=== PATIENT | male | born 1945 | race Two or more races ===

== ENCOUNTER 2023-11-22 13:12 | Outpatient (AMB) | payer MEDICARE, SELFPAY ==
--- OUTSIDE RECORDS SUMMARY | 2023-11-22 13:14 | XMS_ITS | Continuity of Care Document ---
Author Organization [facility] Address [address] [place] [address]- Care Team Providers Care Bookbinder Apprentice Name Role Phone Jayson Quispe MD Primary Care Physician [id number] Date(s): 03/26/21 - 04/25/21 [facility] [address] [place] [id number] Allergies, Adverse Reactions, Alerts No Known Allergies Immunizations Given and Recorded Vaccine Date Status Refusal Reason tetanus-diphtheria toxoids (Td) 09/24/98 Given Medications dexamethasone 4 mg oral tablet 10 tablet = 40 mg, By Mouth, Daily, for 4 days, with food; take in the morning, # 40 tablet, 1 Refills, Acute 05/04/21 15:30:00 EST, 04/26/21 15:30:00 EST, [id number], 10 tabs is 40 mg daily x 4 days, 172, cm, 02/13/21 8:27:00 EST, He... Start Date: 04/26/21 Stop Date: 05/04/21 Status: Ordered hydrochlorothiazide-lisinopril 12.5 mg-10 mg oral tablet 1 tablet, By Mouth, Daily, 0 Refills, Maintenance, 01/11/17 3:28:59 Start Date: 01/11/17 Status: Ordered metFORMIN 850 mg oral tablet 1 tablet = 850 mg, By Mouth, Daily in AM, 0 Refills, Maintenance, 02/20/17 12:15:26 EST, Tablet Start Date: 02/20/17 Status: Ordered pantoprazole 40 mg oral delayed release tablet = 40 mg, By Mouth, Daily, # 60 tablet, 0 Refills, Maintenance, 02/13/21 13:12:00 EST, EC Tablet, 172, cm, 02/13/21 8:27:00 EST, Height, 96.5, kg, 02/12/21 9:03:00 EST, Dry Weight Start Date: 02/13/21 Status: Ordered rosuvastatin 20 mg oral tablet 1 tablet = 20 mg, By Mouth, Daily, Take at noon, # 30 tablet, 0 Refills, Maintenance, 02/12/19 1:49:58 EST, Tablet Start Date: 02/12/19 Status: Ordered Problem List Condition Effective Dates Status Health Status Inform ant Diego Mcpherson(Confirmed) Active Obese class I(Confirmed) Active Obstructive sleep apnea syndrome(Confirmed) Active Rhinitis(Confirmed) Active Smoker(Confirmed) Active Snoring(Confirmed) Active
--- OUTSIDE RECORDS SUMMARY | 2023-11-22 13:14 | XMS_ITS | Continuity of Care Document ---
Author Organization [facility] Address [address] [place] [address]- Care Team Providers Care Supervisor Color Making Name Role Phone Jayson Quispe MD Primary Care Physician Encounter [facility] Date(s): 11/30/20 - 12/30/20 [facility] Care [address] [place] [id number] Attending Physician: Christal Ruby Admitting Physician: AdmChristal osman Referring Physician: AdmtrChristal Allergies, Adverse Reactions, Alerts Substance Reaction Severity Status NKA Active Immunizations Given and Recorded Vaccine Date Status Refusal Reason tetanus-diphtheria toxoids (Td) 09/24/98 Given Medications acetaminophen 325 mg oral tablet 650 mg, By Mouth, Every 6 hours, Refills 0, Maintenance, 02/20/17 12:15:23 Start Date: 02/20/17 Status: Ordered hydrochlorothiazide-lisinopril 12.5 mg-10 mg oral tablet 1 tablet, By Mouth, Daily, 0 Refills, Maintenance, 01/11/17 3:28:59 Start Date: 01/11/17 Status: Ordered metFORMIN 850 mg oral tablet 1 tablet = 850 mg, By Mouth, 2 times a day, 0 Refills, Maintenance, 02/20/17 12:15:26 EST, Tablet Start Date: 02/20/17 Status: Ordered rosuvastatin 20 mg oral tablet 1 tablet = 20 mg, By Mouth, Daily, Take at noon, # 30 tablet, 0 Refills, Maintenance, 02/12/19 1:49:58 EST, Tablet Start Date: 02/12/19 Status: Ordered Problem List Condition Effective Dates Status Health Status Inform ant Hematuria-Dr. Mcpherson(Confirmed) Active Obstructive sleep apnea syndrome(Confirmed) Active Rhinitis(Confirmed) Active Smoker(Confirmed) Active Snoring(Confirmed) Active
--- OUTSIDE RECORDS SUMMARY | 2023-11-22 13:14 | XMS_ITS | Continuity of Care Document ---
Author Organization [facility] ter Address [address] [place] [id number]- Care Team Providers Care Wall Washer Name Role Phone Jayson Quispe MD Primary Care Physician Encounter [facility] Date(s): 01/24/21 - 01/25/[address] [address]- Discharge Disposition: A-D/C Home Attending Physician: Delonte Wallace MD Admitting Physician: Delonte Wallace MD Referring Physician: Not on Staff, Referring MD Allergies, Adverse Reactions, Alerts Substance Reaction Severity [...] Active Rhinitis(Confirmed) Active Smoker(Confirmed) Active Snoring(Confirmed) Active Vital Signs Most recent to oldest [Reference Range]: 1 2 3 Oxygen Saturation [94-100 %] 99 % (01/25/21 12:33 AM) 98 % (01/24/21 7:51 PM) 96 % (01/24/21 4:58 PM) Pulse Rate [55-90 bpm] 110 bpm *H* (01/25/21 12:33 AM) 110 bpm *H* (01/24/21 7:51 PM) 110 bpm *H* (01/24/21 4:58 PM) Blood Pressure [90-138/55-84 mm Hg] 114/72mm Hg (01/25/21 12:33 AM) 112/50mm Hg (01/24/21 7:51 PM) 137/77mm Hg (01/24/21 4:58 PM) Respiratory Rate [16-30 br/min] 15 br/min *L* (01/25/21 12:33 AM) 18 br/min (01/24/21 7:51 PM) 18 br/min (01/24/21 4:58 PM) Temperature [96.8-100.4 DegF] 98.1 DegF (01/25/21 12:33 AM) 98.9 DegF (01/24/21 7:51 PM) 98.3 DegF (01/24/21 4:58 PM) Mode of Delivery (Oxygen) Room air (01/25/21 12:33 AM) Room air (01/24/21 7:51 PM) Room air (01/24/21 4:58 PM) Blood pressure sites Arm, right (01/25/21 12:33 AM) Arm, right (01/24/21 7:51 PM) Arm, right (01/24/21 4:58 PM) Temperature Route Oral (01/25/21 12:33 AM) Oral (01/24/21 7:51 PM) Oral (01/24/21 4:58 PM)
--- OUTSIDE RECORDS SUMMARY | 2023-11-22 13:14 | XMS_ITS | Continuity of Care Document ---
Author Organization [facility] ter Address [address] [place] [id number]- Care Team Providers Care Dimmer Board Operator Name Role Phone Brittaney BLACKWELL, Jayson Perez Primary Care Physician [phone] [id number] Date(s): 02/03/21 - 03/10/[address] [address]- Attending Physician: Maxx High MD Admitting Physician: Maxx High MD Allergies, Adverse Reactions, Alerts Substance Reaction Severity Status NKA Active Immunizations Given and Recorded Vaccine Date Status Refusal Reason tetanus-diphtheria toxoids (Td) 09/24/98 Given Medications hydrochlorothiazide-lisinopril 12.5 mg-10 mg oral tablet 1 [...] Effective Dates Status Health Status Inform ant Shelley-Dr. Mcpherson(Confirmed) Active Obese class I(Confirmed) Active Obstructive sleep apnea syndrome(Confirmed) Active Rhinitis(Confirmed) Active Smoker(Confirmed) Active Snoring(Confirmed) Active
--- OUTSIDE RECORDS SUMMARY | 2023-11-22 13:14 | XMS_ITS | Continuity of Care Document ---
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 Role Phone Jayson Quispe MD Primary Care Physician [phone] [id number] Date(s): 03/08/22 - 03/08/[address] [address]- Encounter Diagnosis COVID-19(Final) - 03/08/22 Fall(Final) - 03/08/22 Weakness(Final) - 03/08/22 Discharge Disposition: A-D/C Home Attending Physician: Iain Sal MD Admitting Physician: Iain Sal MD Referring Physician: Not on Staff, Referring MD Allergies, Adverse Reactions, Alerts No Known Allergies [...] Date: 02/12/19 Status: Ordered Problem List Condition Confirmation Course Effective Dates Status Health [facility] Informant COVID-19 1 Confirmed 03/08/22 Active Hematuria-Dr. Mcpherson Confirmed Active Obstructive sleep apnea syndrome Confirmed Active Rhinitis Confirmed Active Smoker Confirmed Active Snoring Confirmed Active 1Problem added by Discern Expert Results Radiology Reports * Exam Date Time Procedure Performing Provider Status 03/08/22 12:21 PM Chest Portable Idalmis Dominguez h (Verified) Notes: (Chest Portable) Reason For Exam: Other: RESULT: Chest Portable Chest Portable Hx of Present Illness: Pt coming from home, reports he became dizzy and fell from standing. Pt was lowered to the ground by . Denies LOC, head strike. is COVID+ COMPARISON: None. FINDINGS: LINES AND TUBES: None. LUNGS AND PLEURA: Low lung volumes with mild basilar atelectasis. Lungs are otherwise clear with no consolidation. No pleural effusion. No pneumothorax. HEART, MEDIASTINUM AND EMIGDIO: Heart is normal in size. Aorta is tortuous and partially calcified. BONES AND SOFT TISSUES: No acute abnormality. IMPRESSION: Low lung volumes with bibasilar atelectasis. I have personally reviewed the images and I agree with this report. WSN: [id number] Ordering Physician: Eb Martinez Dictated By: Olegario Johnston DO Dictated Date/Time: 03/08/22 1:00 pm Reviewed By: Delonte Hua MD Signed By: Delonte Hua MD Signed Date/Time: 03/08/22 1:05 pm Transcribed By: ESTELLA Transcribed Date/Time: 03/08/22 12:59 pm * Exam Date Time Procedure Performing Provider Status 03/08/22 10:[address] Cervical Spine W/O Contrast Jazlyn Sanchez; Nubia (Verified) Notes: (CT Cervical Spine W/O Contrast) Reason For Exam: Neck trauma, dangerous injury mechanism;Other: RESULT: CT Cervical Spine W/O Contrast CT Head/Brain W/O Contrast, CT Cervical Spine W/O Contrast INDICATION: Hx of Present Illness: Pt coming from home, reports he became dizzy and fell from standing. Pt was lowered to the ground by . Denies LOC, head strike. is COVID+; Reason: Other:; Head trauma, minor; Clinical Question(s): Other: TECHNIQUE: Noncontrast head CT using axial technique was reconstructed in axial and coronal planes.Noncontrast spiral CT through the cervical spine was formatted in 3 planes. Automatic tube modulation was used for the cervical spine and iterative dose reconstruction was used for both the head and cervical spine to optimize scan parameters and image quality. CTDIvol Body: 14.20 mGy, DLP Body: 407 mGy*cm. CTDIvol Head: 40.00 mGy, DLP Head: 671 mGy*cm. COMPARISON: None. FINDINGS: Retail Store Associate View Findings, Lines and Tubes: None. BRAIN AND EXTRA-AXIAL SPACES: No parenchymal hemorrhage, midline shift, or mass effect. Romero-white matter differentiation is wellpreserved. No acute infarct. Mild prominence of the ventricles and sulci consistent with parenchymal volume loss. Mild low-density white matter changes. No subarachnoid hemorrhage. No subdural or epidural collection. CALVARIUM, SKULL BASE, AND SOFT TISSUES: No fractures or suspicious bony lesions. The paranasal sinuses and mastoid air cells are clear. Visualized orbits and globes are intact. The extracranial soft tissues are unremarkable. Cerumen is present in both external auditory canals. CERVICAL SPINE: No fracture. No acute osseous abnormalities. There are poorly defined lytic lesions throughout the cervical spine. The largest measures 7 mm in C5 vertebral body (image 133, series 301). Normal alignment. No locked or perched facet. Moderate multilevel degenerative disc space narrowingand end plate irregularity. OTHER BONES: No acute abnormality. CERVICAL SOFT TISSUES AND LUNG APICES: Normal soft tissues. Calcifications in carotid bulbs. Mild centrilobular emphysema in the visualized lung apices. IMPRESSION: 1. No acute abnormality of the head or cervical spine. 2. Poorly defined subcentimeter lytic bone lesions in the cervical spine are nonspecific but malignancy cannot be excluded. Please consider further evaluation with nonemergent MRI with and without contrast. WSN: [id number] Ordering Physician: Eb Martinez Dictated By: Jossie Friedman MD Dictated Date/Time: 03/08/22 11:24 a Reviewed By: Jossie Friedman MD Signed By: Ersahin MD, Devrim Signed Date/Time: 03/08/22 11:24 am Transcribed By: ESTELLA Transcribed Date/Time: 03/08/22 11:06 am * Exam Date Time Procedure Performing Provider Status 03/08/22 10:[address] Head/Brain W/O Contrast Laura Gabbie; Auth (Verified) Notes: (CT Head/Brain W/O Contrast) Reason For Exam: Head trauma, minor;Other: RESULT: CT Head/Brain W/O Contrast CT Head/Brain W/O Contrast, CT Cervical Spine W/O Contrast INDICATION: Hx of Present Illness: Pt coming from home, reports he became dizzy and fell from standing. Pt was lowered to the ground by . Denies LOC, head strike. is COVID+; Reason: Other:; Head trauma, minor; Clinical Question(s): Other: TECHNIQUE: Noncontrast head CT using axial technique was reconstructed in axial and coronal planes.Noncontrast spiral CT through the cervical spine was formatted in 3 planes. Automatic tube modulation was used for the cervical spine and iterative dose reconstruction was used for both the head and cervical spine to optimize scan parameters and image quality. CTDIvol Body: 14.20 mGy, DLP Body: 407 mGy*cm. CTDIvol Head: 40.00 mGy, DLP Head: 671 mGy*cm. COMPARISON: None. FINDINGS: Retail Store Associate View Findings, Lines and Tubes: None. BRAIN AND EXTRA-AXIAL SPACES: No parenchymal hemorrhage, midline shift, or mass effect. Romero-white matter differentiation is wellpreserved. No acute infarct. Mild prominence of the ventricles and sulci consistent with parenchymal volume loss. Mild low-density white matter changes. No subarachnoid hemorrhage. No subdural or epidural collection. CALVARIUM, SKULL BASE, AND SOFT TISSUES: No fractures or suspicious bony lesions. The paranasal sinuses and mastoid air cells are clear. Visualized orbits and globes are intact. The extracranial soft tissues are unremarkable. Cerumen is present in both external auditory canals. CERVICAL SPINE: No fracture. No acute osseous abnormalities. There are poorly defined lytic lesions throughout the cervical spine. The largest measures 7 mm in C5 vertebral body (image 133, series 301). Normal alignment. No locked or perched facet. Moderate multilevel degenerative disc space narrowingand end plate irregularity. OTHER BONES: No acute abnormality. CERVICAL SOFT TISSUES AND LUNG APICES: Normal soft tissues. Calcifications in carotid bulbs. Mild centrilobular emphysema in the visualized lung apices. IMPRESSION: 1. No acute abnormality of the head or cervical spine. 2. Poorly defined subcentimeter lytic bone lesions in the cervical spine are nonspecific but malignancy cannot be excluded. Please consider further evaluation with nonemergent MRI with and without contrast. WSN: [id number] Ordering Physician: Eb Martinez Dictated By: Jossie Friedman MD Dictated Date/Time: 03/08/22 11:24 a Reviewed By: Jossie Friedman MD Signed By: Jossie Friedman MD Signed Date/Time: 03/08/22 11:24 am Transcribed By: ESTELLA Transcribed Date/Time: 03/08/22 11:06 am Vital Signs Most recent to oldest [Reference Range]: 1 2 3 Oxygen Saturation [94-100 %] 97 % (03/08/22 6:43 PM) 96 % (03/08/22 5:15 PM) 97 % (03/08/22 3:47 PM) Pulse Rate [55-90 bpm] 94 bpm *H* (03/08/22 6:43 PM) 99 bpm *H* (03/08/22 5:15 PM) 89 bpm (03/08/22 3:47 PM) Blood Pressure [90-138/55-84 mm Hg] 134/73mm Hg (03/08/22 6:43 PM) 132/97mm Hg (03/08/22 5:15 PM) 120/68mm Hg (03/08/22 3:52 PM) Respiratory Rate [16-30 br/min] 15 br/min *L* (03/08/22 6:43 PM) 22 br/min (03/08/22 5:15 PM) 20 br/min (03/08/22 3:47 PM) Temperature [96.8-100.4 DegF] 98.9 DegF (03/08/22 6:43 PM) 99.2 DegF (03/08/22 3:47 PM) 99.0 DegF (03/08/22 12:43 PM) Mode of Delivery (Oxygen) Room air (03/08/22 6:43 PM) Room air (03/08/22 5:15 PM) Room air (12/27/22 3:47 PM) Blood pressure sites Arm, left (03/08/22 6:43 PM) Arm, left (03/08/22 5:15 PM) Arm, left (03/08/22 3:52 PM) Temperature Route Oral (03/08/22 6:43 PM) Oral (03/08/22 3:47 PM) Oral (03/08/22 12:43 PM) EKG study * Event Display: EKG Authored Date: [id number] Note * Eb Martinez MD: PERFORM Event Display: Patient Education Leaflets Authored Date: [id number] Viral Syndrome (Adult) ?? [id number] Viral Syndrome (Adult) A viral illness may cause many symptoms such as fever. Other symptoms depend on the part of the body that the virus affects. If it settles in your nose, throat, and lungs, it may cause cough, sore throat, congestion, runny nose, headache, earache and other ear symptoms, or shortness of breath. If it settles in your stomach and intestinal tract, it may cause nausea, vomiting, cramping, and diarrhea. Sometimes it causes generalized symptoms like aching all over, feeling tired, loss of energy, or loss of appetite. A viral illness often lasts anywhere from a few days to a few weeks. But sometimes it lasts longer.In some cases, a more serious infection can look like a viral syndrome in the first few days of theillness. You may need another exam and additional tests to know the difference. Watch for the warning signs listed below for when to get medical advice. Home care Follow these guidelines for taking care of yourself at home: ??? If symptoms are severe, rest at home for the first 2 to 3 days. ??? Stay away from cigarette smoke - both your smoke and the smoke from others. ??? You may use idbd-zcp-fzrqziu??acetaminophen or ibuprofen for fever, muscle aching, and headache, unless another medicine was prescribed for this. Antibiotics aren't used to treat viral infections. If you have chronic liver or kidney disease or ever had a stomach ulcer or gastrointestinal bleeding, talk with your healthcare provider before using these medicines. No one who is younger than 18 and ill with a fever should take aspirin. It may cause severe disease or . ??? Your appetite may be poor, so a light diet is fine. Prevent dehydration by drinking 8 to 12, 8-ounce glassesof fluids each day. This may include water; orange juice; lemonade; apple, grape, and cranberry juice; clear fruit drinks; electrolyte replacement and sports drinks; and decaffeinated teas and coffee. If you've been diagnosed with a kidney disease, ask your healthcare provider how much and what types of fluids you should drink to prevent dehydration. If you have kidney disease, drinking too much fluid can cause it build up in your body and be dangerous to your health. ??? Pvya-jdi-pibrxmt remedies won't shorten the length of the illness. But they may be helpful for symptoms such as cough, sore throat, nasal and sinus congestion, or diarrhea. Don't use decongestants if you have high blood pressure. ?? Follow-up care Follow up with your healthcare provider if you don't get better over the next week. ?? Call 911 Call 911 if any of these occur: ??? Convulsion ??? Feeling weak, dizzy, or like you are going to faint ??? Chest pain, or more than mild shortness of breath ?? When to get medical advice Call your healthcare provider right away if any of these occur: ??? Cough with lots of colored sputum (mucus) or blood in your sputum ??? Chest pain, shortness of breath, wheezing, or trouble breathing ??? Severe headache; face, neck, or ear pain ??? Severe, constant pain in the lower right side ofyour belly (abdominal) ??? Continued vomiting (can???t keep liquids down) ??? Frequent diarrhea (more than 5 times a day), or blood (red or black color) or mucus in diarrhea ??? Feeling weak, dizzy, or like you are going to faint ??? Extreme thirst ??? Fever of 100.4??F (38??C) or higher, or as directed by your provider ?? Last Reviewed Date: 2021 ?? [id number] [employer]. All rights reserved. This information is not intended as a substitute for professional medical care. Always follow your healthcare professional's instructions. ?? CT Cervical spine WO contrast * [facility] , CIS S: TRANSCRIBE Idalia BLACKWELL, Devrim: VERIFY Event Display: Result: Authored Date: CT Head/Brain W/O Contrast, CT Cervical Spine W/O Contrast INDICATION: Hx of Present Illness: Pt coming from home, reports he became dizzy and fell from standing. Pt was lowered to the ground by . Denies LOC, head strike. is COVID+; Reason: Other:; Head trauma, minor; Clinical Question(s): Other: TECHNIQUE: Noncontrast head CT using axial technique was reconstructed in axial and coronal planes.Noncontrast spiral CT through the cervical spine was formatted in 3 planes. Automatic tube modulation was used for the cervical spine and iterative dose reconstruction was used for both the head and cervical spine to optimize scan parameters and image quality. CTDIvol Body: 14.20 mGy, DLP Body: 407 mGy*cm. CTDIvol Head: 40.00 mGy, DLP Head: 671 mGy*cm. COMPARISON: None. FINDINGS: Retail Store Associate View Findings, Lines and Tubes: None. BRAIN AND EXTRA-AXIAL SPACES: No parenchymal hemorrhage, midline shift, or mass effect. Romero-white matter differentiation is wellpreserved. No acute infarct. Mild prominence of the ventricles and sulci consistent with parenchymal volume loss. Mild low-density white matter changes. No subarachnoid hemorrhage. No subdural or epidural collection. CALVARIUM, SKULL BASE, AND SOFT TISSUES: No fractures or suspicious bony lesions. The paranasal sinuses and mastoid air cells are clear. Visualized orbits and globes are intact. The extracranial soft tissues are unremarkable. Cerumen is present in both external auditory canals. CERVICAL SPINE: No fracture. No acute osseous abnormalities. There are poorly defined lytic lesions throughout the cervical spine. The largest measures 7 mm in C5 vertebral body (image 133, series 301). Normal alignment. No locked or perched facet. Moderate multilevel degenerative disc space narrowingand end plate irregularity. OTHER BONES: No acute abnormality. CERVICAL SOFT TISSUES AND LUNG APICES: Normal soft tissues. Calcifications in carotid bulbs. Mild centrilobular emphysema in the visualized lung apices. IMPRESSION: 1. No acute abnormality of the head or cervical spine. 2. Poorly defined subcentimeter lytic bone lesions in the cervical spine are nonspecific but malignancy cannot be excluded. Please consider further evaluation with nonemergent MRI with and without contrast. WSN: [id number] Ordering Physician: Eb Martinez Dictated By: Jossie Friedman MD Dictated Date/Time: 03/08/22 11:24 a Reviewed By: Jossie Friedman MD Signed By: Jossie Friedman MD Signed Date/Time: 03/08/22 11:24 am Transcribed By: ESTELLA Transcribed Date/Time: 03/08/22 11:[address] Head WO contrast * [facility] , CIS S: TRANSCRIBE Jossie Friedman MD: VERIFY Event Display: Result: Authored Date: [id number] CT Head/Brain W/O Contrast, CT Cervical Spine W/O Contrast INDICATION: Hx of Present Illness: Pt coming from home, reports he became dizzy and fell from standing. Pt was lowered to the ground by . Denies LOC, head strike. is COVID+; Reason: Other:; Head trauma, minor; Clinical Question(s): Other: TECHNIQUE: Noncontrast head CT using axial technique was reconstructed in axial and coronal planes.Noncontrast spiral CT through the cervical spine was formatted in 3 planes. Automatic tube modulation was used for the cervical spine and iterative dose reconstruction was used for both the head and cervical spine to optimize scan parameters and image quality. CTDIvol Body: 14.20 mGy, DLP Body: 407 mGy*cm. CTDIvol Head: 40.00 mGy, DLP Head: 671 mGy*cm. COMPARISON: None. FINDINGS: Retail Store Associate View Findings, Lines and Tubes: None. BRAIN AND EXTRA-AXIAL SPACES: No parenchymal hemorrhage, midline shift, or mass effect. Romero-white matter differentiation is wellpreserved. No acute infarct. Mild prominence of the ventricles and sulci consistent with parenchymal volume loss. Mild low-density white matter changes. No subarachnoid hemorrhage. No subdural or epidural collection. CALVARIUM, SKULL BASE, AND SOFT TISSUES: No fractures or suspicious bony lesions. The paranasal sinuses and mastoid air cells are clear. Visualized orbits and globes are intact. The extracranial soft tissues are unremarkable. Cerumen is present in both external auditory canals. CERVICAL SPINE: No fracture. No acute osseous abnormalities. There are poorly defined lytic lesions throughout the cervical spine. The largest measures 7 mm in C5 vertebral body (image 133, series 301). Normal alignment. No locked or perched facet. Moderate multilevel degenerative disc space narrowingand end plate irregularity. OTHER BONES: No acute abnormality. CERVICAL SOFT TISSUES AND LUNG APICES: Normal soft tissues. Calcifications in carotid bulbs. Mild centrilobular emphysema in the visualized lung apices. IMPRESSION: 1. No acute abnormality of the head or cervical spine. 2. Poorly defined subcentimeter lytic bone lesions in the cervical spine are nonspecific but malignancy cannot be excluded. Please consider further evaluation with nonemergent MRI with and without contrast. WSN: [id number] Ordering Physician: Eb Martinez Dictated By: Jossie Friedman MD Dictated Date/Time: 03/08/22 11:24 a Reviewed By: Jossie Friedman MD Signed By: Jossie Friedman MD Signed Date/Time: 03/08/22 11:24 am Transcribed By: ESTELLA Transcribed Date/Time: 03/08/22 11:06 am Portable XR Chest Views * [facility] , CIS S: TRANSCRIBE Delonte Hua MD: VERIFY Olegario Johnston DO: SIGN Event Display: Result: Authored Date: Chest Portable Hx of Present Illness: Pt coming from home, reports he became dizzy and fell from standing. Pt was lowered to the ground by . Denies LOC, head strike. is COVID+ COMPARISON: None. FINDINGS: LINES AND TUBES: None. LUNGS AND PLEURA: Low lung volumes with mild basilar atelectasis. Lungs are otherwise clear with no consolidation. No pleural effusion. No pneumothorax. HEART, MEDIASTINUM AND EMIGDIO: Heart is normal in size. Aorta is tortuous and partially calcified. BONES AND SOFT TISSUES: No acute abnormality. IMPRESSION: Low lung volumes with bibasilar atelectasis. I have personally reviewed the images and I agree with this report. WSN: [id number] Ordering Physician: Eb Martinez Dictated By: Olegario Johnston DO Dictated Date/Time: 03/08/22 1:00 pm Reviewed By: Delonte Hua MD Signed By: Delonte Hua MD Signed Date/Time: 03/08/22 1:05 pm Transcribed By: ESTELLA Transcribed Date/Time: 03/08/22 12:59 pm Patient Care team information Care Team Personnel Name: Natasha Fonseca Position: [facility] Onco RN Member Role: Primary Care Nurse Name: Gianluca Pearson RN Position: [facility] RN Member Role: Primary Care Nurse Name: Olimpia Rivera Position: [facility] RN Member Role: Primary Care Nurse Name: Naheed Canela RN Position: [facility] RN Member Role: Primary Care Nurse Name: Jes Lerner Position: [facility] RN Member Role: Primary Care Nurse Name: Eunice Hameed RN Position: [facility] RN Member Role: Primary Care Nurse Name: Jayson Quispe MD Position: [facility] Physician (General Medicine) Member Role: PCP Address: Address: [address] [place] [address] Name: Lesia Frank Position: [facility] ED RN W/OE and Tasks Member Role: Patient Care Provider Name: Alejo Lee MD Position: [facility] ED Medicine MD Member Role: ED Attending Physician Address: Address: [address] [place] [id number]- Name: Eb Martinez MD Position: [facility] Resident Member Role: ED Resident Address: Address: [address] [place] [id number] [email or web address]] Name: Ivanna Castellano Position: [facility] ED TA [facility] Member Role: Operating Theatre Technician Care Team Related Persons Name: LILIAM SANTILLAN Address: home [address] [place] [address] Name: DARBY MARTINEZ Address: home [address] [place] [address]
--- OUTSIDE RECORDS SUMMARY | 2023-11-22 13:14 | XMS_ITS | Continuity of Care Document ---
Author Organization [facility] Address [address] [place] [address]- Care Team Providers Care Business Development Analyst Name Role Phone Jayson Quispe MD Primary Care Physician [facility] [id number] Date(s): 11/13/23 - 11/20/23 [facility] [address] [place] [address]- Encounter Diagnosis Viral URI with cough(Discharge Diagnosis) - 11/13/23 Attending Physician: Amy Daniel MD Referring Physician: Jayson Quispe MD Allergies, Adverse Reactions, Alerts No Known Allergies Immunizations Given and Recorded Vaccine Date Status Refusal Reason tetanus-diphtheria toxoids (Td) 09/24/98 Given Medications benzonatate 200 mg oral capsule 1 capsule = 200 mg, By Mouth, 3 times a day, PRN as needed for cough, for 14 days, # 42 capsule, 0 Refills, Acute 11/27/23 13:36:00 EDT, 11/13/23 13:36:00 EDT, [place], [id number], Partial fill upon patient request if the prescription... Start Date: 11/13/23 Stop Date: 11/27/23 Status: Ordered fluticasone 50 mcg/inh nasal spray 1 sprays = 50 mcg, Nares, Both, 2 times a day, # 16 Gm, 0 Refills, Maintenance, 11/13/23 13:36:00 EDT, [place], [facility] #[id number], Partial fill upon patient request if the prescription is fora schedule II opioid drug., 1 sprays Nares, Both 2... Start Date: 11/13/23 Status: Ordered glimepiride 2 mg oral tablet 1 tablet = 2 mg, By Mouth, Daily, # 30 tablet, 0 Refills, Maintenance, 11/13/23 13:01:00 EDT, Tablet, Partial fill upon patient request if the prescription is for a schedule II opioid drug. Start Date: 11/13/23 Status: Ordered hydrochlorothiazide-lisinopril 12.5 mg-10 mg oral [...] Confirmed Active 1Problem added by Discern Expert Diagnosis Diagnosis Type Effective Dates Health Status Cl inical Service Informant Viral URI with cough Discharge Diagnosis 11/13/23 Vital Signs Most recent to oldest [Reference Range]: 1 2 Height 172 cm (11/13/23 1:34 PM) 172 cm (11/13/23 1:02 PM) Oxygen Saturation [94-100 %] 100 % (11/13/23 1:02 PM) Pulse Rate [55-90 bpm] 95 bpm *H* (11/13/23 1:34 PM) 104 bpm *H* (11/13/23 1:02 PM) Blood Pressure [90-138/55-84 mm Hg] 140/ 80mm Hg *H* (11/13/23 1:34 PM) 143/88mm Hg *H* (11/13/23 1:02 PM) Temperature [96.8-100.4 DegF] 97.7 DegF (11/13/23 1:02 PM) Mode of Delivery (Oxygen) Room air (11/13/23 1:02 PM) Blood pressure sites Arm, left (11/13/23 1:34 PM) Arm, right (11/13/23 1:02 PM) Temperature Route Temporal (11/13/23 1:02 PM) Note * Carole Holloway: PERFORM Event Display: Patient Education/Instruction Authored Date: [id number] Ambulatory Adult Visit Summary [facility] [address] [place] [address] Name: HENRY SANTILLAN : 1945?? Visit: 11/13/2023 12:46?? Ambulatory Visit Instructions ?? Your Care Team Primary Care Provider Brittaney BLACKWELL, Jayson Perez? This Visit Provider Urgent [facility] Your Diagnosis Viral URI with cough Vitals Signs Temperature: 97.7 DegF Height: 172 cm Pulse Rate:??95 bpm??High ?? Systolic Blood Pressure:??140 mm Hg??High ?? Diastolic Blood Pressure: 80 mm Hg ?? Oxygen Saturation: 100 % ?? What to do next Future Orders COVID-19 (2019 Novel Coronavirus) PCR - Routine, Nasopharyngeal, Patient is Symptomatic, Once, 11/13/23 13:36:00 EDT, Order for Today, [facility], Nasopharyngeal Swab?? Medications The list below reflects the information in our records and provided by you today along with any changes made during this visit. Please continue your medications until treatment is completed or stopped by your provider. If this is different from the information you have or there are other questions,please contact the prescribing provider. What How Much When Why Instructions New Benzonatate (benzonatate 200 mg oral capsule) 1 capsule Oral 3 times a day as needed for as needed for cough Viral URI with cough Duration: 14 Days Pickup at [facility] #[id number] New Fluticasone Nasal (fluticasone 50 mcg/ inh nasal spray) 1 spray(s) Nares, Both Twice a day Viral URI with cough Pickup at [facility] #[id number] Unchanged Glimepiride (glimepiride 2 mg oral tablet) 1 tab(s) Oral Daily Contact prescribing physician if questions or concerns ?? Unchanged Hydrochlorothiazide-Lisinopril (hydrochlorothiazide-lisinopril 12.5 mg-10 mg oral tablet) 1 tab(s) Oral Daily Contact prescribing physician if questions or concerns ?? Unchanged Metformin (metFORMIN 850 mg oral tablet) 1 tab(s) Oral Twice a day Contact prescribing physician if questions or concerns ?? Unchanged Pantoprazole (pantoprazole 40 mg oral delayed release tablet) 40 Milligram Oral Daily Contact prescribing physician if questions or concerns ?? Unchanged Rosuvastatin (rosuvastatin 20 mg oral tablet) 1 tab(s) Oral Daily Take at noon Contact prescribing physician if questions or concerns ?? Pharmacy Information [facility] #[id number]: [address], [place] [id number] [phone] Test Performed Below is a partial list of the tests performed during your Visit. You may have had other tests and procedures not included in this list. Please discuss all test results with your provider. COVID-19 (2019 Novel Coronavirus) PCR?-- Results Pending -- Medications and Immunizations Administered Medications Given During Visit No medications given during this visit.?? Allergies (NKA means No Known Allergies) NKA Education Materials Below is the list of Educational Leaflet Providered with your Visit summary. [employer] Patient Education - Viral Upper Respiratory Illness (Adult)?? Common Emergency Awareness Tips IS IT A STROKE? Act FAST and Check for these signs: FACE Does the face look uneven? ARM Does one arm drift down? SPEECH Does their speech sound strange? TIME Call at any sign of stroke ?? Heart Attack Signs Chest discomfort: Most heart attacks involve discomfort in the center of the chest and lasts more than a few minutes, or goes away and comes back. It can feel like uncomfortable pressure, squeezing, fullness or pain. Discomfort in upper body: Symptoms can include pain or discomfort in one or both arms, back, neck, jaw or stomach. Shortness of breath: With or without discomfort. Other signs: Breaking out in a cold sweat, nausea, or lightheaded. Remember, MINUTES DO MATTER. If you experience any of these heart attack warning signs, call to get immediate medical attention! ?? Smoking can increase your chances of developing chronic health problems and can cause harmful effects to other family members in your house. If you smoke, you are strongly encouraged to quit. Please call [facility] at [phone] or [phone] ([phone]) or log in to [email or web address] for referrals to smoking cessation programs. ?? The National Suicide Prevention Hotline is available 03/10 if you or someone you know needs to find a reason to keep living. By calling 9-608-750-Resale Therapy (6403) you'll be connected to a skilled, trained counselor at a crisis center in your area. [facility] You can view and manage your care through the patient portal or by using a health care marquita of your choosing. [employer] is a website that allows you to securely view your medical information including your hospital discharge summary, office visit summaries, medications and follow-up visits. You can also request appointments, renew medications, and request access to your medical information using a health care marquita of your choosing, or just ask a question. You can enroll at [email or web address] or register during your next office visit. [facility], in keeping with [facility] guidance, no longer requires face masks for staff, patientsor visitors in most situations. Similiar to time spent indoors at other locations, there is the chance that you were exposed to repiratory viruses during your time with us (such as flu or COVID-19). If you develop symptoms concerning for a viral respiratory infection, please seek testing (and treatment if indicated) from your medical provider or home test kit. ?? Disclaimer: The information provided is of a general nature and is intended to be used in conjunction with the recommendations and advice of your health care practitioner. Every effort has been made to ensure that the information provided is accurate and complete at the time it is provided to you however, as your needs change, or, as new information becomes available, different or additional instructions may be required. ?? If you have questions, please consult with your primary care provider or pharmacist, as appropriate. This information is not intended to serve as substitution for assessment and evaluation by a qualified health care provider. If you do not have a primary care provider, you may find a [facility] provider by calling [facility] at [phone]. * Dejah Livingston: PERFORM Event Display: Patient Education Leaflets Authored Date: [id number] Viral Upper Respiratory Illness (Adult) ?? [id number] Viral Upper Respiratory Illness (Adult) You have a viral upper respiratory illness (URI), which is another term for the common cold. This viral illness is contagious during the first few days. It's spread through the air by coughing and sneezing. It may also be spread by direct contact (touching the sick person and then touching your owneyes, nose, or mouth). Frequent handwashing will lower risk of spread. Most viral illnesses go awaywithin 7 to 10 days with rest and simple home remedies. Sometimes the illness may last for several weeks. Antibiotics will not kill a virus, and they are generally not prescribed for this condition. Home care ??? If symptoms are severe, rest at home for the first 2 to 3 days or as advised. When you resume activity, don't let yourself get too tired. ??? Don't smoke. If you need help stopping, talk with your healthcare provider. ??? Stay away from cigarette smoke (yours or others???). ??? You may use acetaminophen or ibuprofen to control pain and fever, unless another medicine was prescribed.??Talk with your provider before taking these medicines if you have chronic liver or kidney disease. Also talk with your provider if you've had a stomach ulcer or digestive bleeding, or you take blood-thinning medicines. Never give aspirin to anyone under 18 years of age who is ill with a viral infection or fever. It may cause severe liver or brain damage, or even . ??? Your appetite may be poor, so a light diet is OK. Stay well hydrated by drinking 6 to 8 glasses of fluids per day (water, soft drinks, juices, tea, or soup). Extra fluids will help loosen secretions in the nose and lungs. ??? Ytjg-kif-uhktqnj cold medicines will not shorten the length of time you???re sick. But they may be helpful for cough, sore throat, and nasal and sinus congestion. If you take prescription medicines, ask your healthcare provider or pharmacist which pdin-axz-tqjxdno medicines are safe to use. Don'tuse decongestants, if you have high blood pressure, without first talking with your healthcare provider. ??? If you are taking other prescribed medicine, contact your healthcare provider before taking any odzj-xcm-mbzbquv medicines. ?? Follow-up care Follow up with your healthcare provider, or as advised. ?? When to seek medical advice Call your healthcare provider right away if any of these occur: ??? Cough with lots of colored sputum (mucus) ??? Severe headache; face, neck, or ear pain ??? Difficulty??swallowing??due to throat pain ??? Fever of 100.4??F (38??C) or higher , or as directed by your healthcare provider ?? Call 911 Call 911 if any of these occur: ??? Chest pain, shortness of breath, wheezing, or difficulty breathing ??? Coughing up blood ??? Very severe pain with swallowing, especially if it goes along with a muffled voice ??? Feeling of doom ??? Feeling dizzy, faint, or confused ??? Lips or skin is blue, purple or henson in color ?? Last Reviewed Date: 2021 ?? [id number] [employer] All rights reserved. This information is not intended as a substitute for professional medical care. Always follow your healthcare professional's instructions. ?? Patient Care team information Care Team Personnel Name: Natasha Fonseca Position: [facility] Onco RN Member Role: Primary Care Nurse Name: Gianluca Pearson RN Position: [facility] RN Member Role: Primary Care Nurse Name: Naheed Canela RN Position: S RN Member Role: Primary Care Nurse Name: Eunice Hameed RN Position: S RN Member Role: Primary Care Nurse Name: Jayson Quispe MD Position: [facility] Physician - Primary Care Member Role: PCP Address: Address: [address] [place] [address]- Care Team Related Persons Name: LILIAM SANTILLAN Address: home [address] [place] [address] Name: DARBY MARTINEZ Address: home [address] [place] [address]
--- OUTSIDE RECORDS SUMMARY | 2023-11-22 13:14 | XMS_ITS | Continuity of Care Document ---
Author Organization [facility] Address [address] [place] [address]- Care Team Providers Care Manager Sound Name Role Phone Brittaney BLACKWELL, Jayson Perez Primary Care Physician [id number] Date(s): 02/11/21 - 02/13/[address] [address]- Encounter Diagnosis Lower GI bleed(Final) - 02/11/21 Hematochezia(Final) - 02/11/21 Anemia(Final) - 02/11/21 Thrombocytopenia(Final) - 02/11/21 Discharge Disposition: A-D/C Home Attending Physician: Hardeep Loomis MD Admitting Physician: Rosa Walter MD Referring Physician: Not on Staff, Referring [...] to oldest [Reference Range]: 1 2 3 Height 172 cm (02/13/21 8:27 AM) 172 cm (02/13/21 5:39 AM) 172 cm (02/12/21 11:05 PM) Weight 92.9 kg (02/13/21 5:39 AM) 96.5 kg (02/12/21 9:03 AM) 96.5 kg (02/11/21 10:55 PM) Oxygen Saturation [94-100 %] 96 % (02/13/21 8:27 AM) 98 % (02/13/21 5:39 AM) 96 % (02/12/21 11:05 PM) Pulse Rate [55-90 bpm] 92 bpm *H* (02/13/21 8:27 AM) 86 bpm (02/13/21 5:39 AM) 79 bpm (02/12/21 11:05 PM) Body Mass Index [18.5-24.99] 31.4 *>HHI* (02/13/21 5:39 AM) 32.62 *>HHI* (02/12/21 9:03 AM) 32.62 *>HHI* (02/11/21 10:55 PM) Blood Pressure [90-138/55-84 mm Hg] 136/79mm Hg (02/13/21 8:27 AM) 139/70mm Hg *H* (02/13/21 5:39 AM) 120/50mm Hg (02/12/21 11:05 PM) Respiratory Rate [16-30 br/min] 20 br/min (02/13/21 8:27 AM) 18 br/min (02/13/21 5:39 AM) 17 br/min (02/12/21 11:05 PM) Temperature [96.8-100.4 DegF] 99.4 DegF (02/13/21 8:27 AM) 98.5 DegF (02/13/21 5:39 AM) 98.0 DegF (02/12/21 11:05 PM) Liters per Minute 3 L/min (02/12/21 11:22 AM) Mode of Delivery (Oxygen) Room air (02/13/21 8:27 AM) Room air (02/13/21 5:39 AM) Room air (02/12/21 11:05 PM) Blood pressure sites Arm, right (02/13/21 8:27 AM) Arm, right (02/13/21 5:39 AM) Arm, right (02/12/21 11:05 PM) Temperature Route Oral (02/13/21 8:27 AM) Oral (02/13/21 5:39 AM) Oral (02/12/21 11:05 PM) Dry Weight 96.5 kg (02/12/21 9:03 AM) 96.5 kg (02/11/21 10:55 PM) 91 kg (02/11/21 12:11 PM) Weight Obtained Via Bed scale (02/13/21 5:39 AM) Bed scale (02/11/21 10:55 PM) Bed scale (02/11/21 10:01 PM) Dry Weight Obtained Via Standing scale (02/11/21 11:24 AM)
--- OUTSIDE RECORDS SUMMARY | 2023-11-22 13:14 | XMS_ITS | Continuity of Care Document ---
Author Organization [facility] Address [address] [place] [address]- Care Team Providers Care Tool Clerk Name Role Phone Jayson Quispe MD Primary Care Physician Encounter [facility] [id number] Date(s): 11/30/20 - 11/24/21 [facility] [address] [place] [id number] Discharge Disposition: A-D/C Home Attending Physician: Priyank BLACKWELL, Darell Veras Admitting Physician: Darell Yost MD Referring Physician: Jayson Quispe MD Allergies, [...] [Reference Range]: 1 2 Height 172 cm (05/26/21 10:29 AM) 173 cm (12/14/20 11:16 AM) Weight 88.2 kg (05/26/21 10:29 AM) 92.7 kg (12/14/20 11:16 AM) Pulse Rate [55-90 bpm] 94 bpm *H* (05/26/21 10:29 AM) 100 bpm *H* (12/14/20 11:16 AM) Body Mass Index [18.5-24.99] 29.81 *H* (05/26/21 10:29 AM) 30.97 *>HHI* (12/14/20 11:16 AM) Blood Pressure [90-138/55-84 mm Hg] 134/ 77mm Hg (05/26/21 10:29 AM) 149/82mm Hg *H* (12/14/20 11:16 AM) Temperature [96.8-100.4 DegF] 97.2 DegF (05/26/21 10:29 AM) 97.4 DegF (12/14/20 11:16 AM) Blood pressure sites Arm, right (05/26/21 10:29 AM) Arm, left (12/14/20 11:16 AM) Temperature Route Temporal (05/26/21 10:29 AM) Temporal (12/14/20 11:16 AM) Dry Weight 88.2 kg (05/26/21 10:29 AM) 92.7 kg (12/14/20 11:16 AM) Weight Obtained Via Standing scale (05/26/21 10:29 AM) Standing scale (12/14/20 11:16 AM) Dry Weight Obtained Via Standing scale (05/26/21 10:29 AM) Standing scale (12/14/20 11:16 AM) Care Team Personnel Name: Jayson Qiuspe MD Address: [address] [place] [id number]
--- OUTSIDE RECORDS SUMMARY | 2023-11-22 13:14 | XMS_ITS | Continuity of Care Document ---
Author Organization [facility] Address [address] [place] [address]- Care Team Providers Care Data Entry Name Role Phone Jayson Quispe MD Primary Care Physician [phone] [facility] Date(s): 12/14/20 - 01/13/21 [facility] [address] [place] [id number] Allergies, Adverse Reactions, Alerts Substance Reaction Severity [...]
--- OUTSIDE RECORDS SUMMARY | 2023-11-22 13:14 | XMS_ITS | Continuity of Care Document ---
Author Organization [facility] Address [address] [place] [address]- Care Team Providers Care Private Watchman Name Role Phone Jayson Quispe MD Primary Care Physician Encounter 02/14/21 - 03/24/21 [facility] [address] [place] [address]- Discharge Disposition: GOALS MET Allergies, Adverse Reactions, Alerts Substance Reaction Severity [...] Health Status Inform ant Hematuria-Dr. Mcpherson(Confirmed) Active Obese class I(Confirmed) Active Obstructive sleep apnea syndrome(Confirmed) Active Rhinitis(Confirmed) Active Smoker(Confirmed) Active Snoring(Confirmed) Active
--- OUTSIDE RECORDS SUMMARY | 2023-11-22 13:15 | XMS_ITS ---
Author Organization [facility] [place] Address [address] [facility] [place] [address] Care Team Providers Care Financial Internship Name Role Phone Jayson Quispe MD Primary Care Provider Telly Stewart Unavailable [phone] ALLERGIES No Known Allergies REASON FOR VISIT Painful nail(s) aggrevated by shoes and causing difficulty standing/walking., PCP - 12/2022 MEDICATIONS Medication SIG (Take, Route, Frequency, Duration) Notes Start Date End Date Status Ecotrin Low Strength 81 MG 1 tablet Orally Once a day Not-Taking Ciclopirox Olamine 0.77 % 1 application to affected area Externally Twice a day to effected areas on feet for 30 days Active Amoxicillin Not-Taki ng Lisinopril-hydroCHLOROthi azide 10-12.5 MG 1 tablet Orally Once a day Active Keflex 500 MG 1 capsule Orally raza ry 12 hrs for 10 day(s) Not-Taking Fish Oil Not-Taking Extra Depth Diabetic Shoes with 3 Pair Custom heat-molded multi-density innersoles for 1 year Dx: 11/01/2018 Active Rosuvastatin Calcium Active metFORMIN HCl 850 MG 1 tablet with a mera l Orally twice daily Active Vitamin D3 Active SOCIAL HISTORY Tobacco Use: Social History Observation Description Date Details (start date - stop date) Former Smoker NA - NA Sex Assigned At : Social History Observation Description Sex Assigned At Unknown Tobacco Use/Smoking Question Answer Notes Are you a: former smoker Additional Findings: Tobacco Non-User Current no n-smoker Alcohol Screen Question Answer Notes Did you have a drink containing alcohol in the p ast year? No Points 0 Interpretation Negative Tobacco use other than smoking: Question Answer Notes Are you an other tobacco user? No VITAL SIGNS Height 5 ft 8 in in 05/10/2023 Weight 208 lbs 05/10/2023 BMI 31.62 kg/m2 05/10/2023 Encounters Encounter Location Date Provider Diagnosis [facility] [place] [address] [place] [address] 05/10/2023 Telly Harkins Type 2 diabetes mellitus with diabetic polyneuropathy E11.42 ; Ingrowing nail L60.0 ; Pain in right toe(s) M79.674 ; Tinea unguium B35.1 ; Pain in left toe(s) M79.675 ; Pain in left foot M79.672 ; Hallux valgus (acquired), right foot M20.11 ; Other hammer toe(s) (acquired), left foot M20.42 ; Other hammer toe(s) (acquired), right foot M20.41 ; Xerosis cutis L85.3 and Tinea pedis B35.3 ASSESSMENTS Encounter Date Diagnosis Assessment Notes Treatment Notes Treatment Clinical Notes 05/10/2023 Type 2 diabetes mellitus with diabetic polyneuropathy (ICD-10 - E11.42) 05/10/2023 Ingrowing nail (ICD-10 - L60.0) 05/10/2023 Pain in right toe(s) (ICD-10 - M79.674) 05/10/2023 Tinea unguium (ICD-1 0 - B35.1) 05/10/2023 Pain in left toe(s) (ICD-10 - M79.675) 05/10/2023 Pain in left foot (ICD-10 - M79.672) 05/10/2023 Hallux valgus (acquired), right foot (ICD-10 - M20.11) 05/10/2023 Other hammer toe(s) (acquired), left foot (ICD-10 - M20.42) 05/10/2023 Other hammer toe(s) (acquired), right foot (ICD-10 - M20.41) 05/10/2023 Xerosis cutis (ICD-1 0 - L85.3) 05/10/2023 Tinea pedis (ICD-10 - B35.3) PLAN OF TREATMENT Medication Medication Name Sig Start Date Stop Date Notes Ciclopirox Olamine 0.77 % 1 application to affected area Externally Twice a day to effected areas on feet for 30 days Next Appt Details Follow Up: 3 Months,4 Months , Reason: Provider Name:Telly Kiersten Harkins, 11/29/2023 11:00:00 AM, [address] [place] [address], [phone], Procedure Notes * Category Sub-Category Detail Notes Debride Nail 6-10 Nail debridement Nail debridem ent performed extensively to reduce/remove overall nail length and girth, subungual debris, and necrotic tissue, by manual and electrical means with use of a nail nipper and/or dremel, to more viable healthy nail plate or bed tissue 6-10. Silver nitrate used for any petechial bleeding as necessary. Patient chooses, no pharmaceutical tx (13204) Keratoma Treatment Parring or Cutting o f Benign Hyperkeratotic Lesion(s) 44274 (2-4 Lesions) - The Benign hyperkeratotic lesions, as described above were pared, and/or cut utilizing a sterile #15 blade, tissue nippers, and/or dremel Progress Notes * Examination Category Sub-Category Detail Notes Neurological SENSORY: exam demonstrate s. reduced vibration lower extremity , at Forefoot, at Midfoot, B/L, 5.07 monofilament test performed at plantar aspects of 5 varied sites per foot shows sensation, reduced , B/L Dermatologic SKIN FINDINGS: Skin exam reveal s Keratotic lesion(s) located at, Heel(s), B/L Orthopedic BUNION: Medially promine nt 1st MPJ, B/L, Lateral tracking 1st MPJ incompletely reducable General Examination GENERAL APPEARANCE: Reveals a pleasant, alert, well nourished, well developed, well hydrated individual, who demonstrates proper attention to hygene/body habitus, and is in no acute distress FOOT EXAM: Lower Extremity Neurological Exa m performed:: Yes Visual exam of foot performed:: Yes Date: 06/07/2021 Sensory testing performed:: sensations d iminished Pedal pulse taking performed:: 1+ ORIENTED: person, place, and t derick Ophthalmology Referral DIABETES EYE EXAM Diabetic Reti nopathy Screening:: Yes Findings of Diabetic Eye Exam:: no retin opathy Vascular DP PULSES: 1/4, B/L PT PULSES: 0/4, B/L SKIN TEMPERTURE GRADIENT OF THE LOWER EXTERMITIES: decreased, cool to cold, proximal to dis nuha, B/L HAIR GROWTH/TEXTURE/ELASTICITY/TURGOR: s parce hair growth Nails NAILS are: Elongated, overg rown, dystrophic, lytic, greater than 3mm thick, discolored and friable with crumbly malodorous subungual debris, with dull to no pain on palpation due to neuropathy, 1-5 B/L History and Physical Notes * HPI (History of Present Illness) Category Sub-Category Detail Notes Painful Nails Pt States Last PCP Visit: Date:: 023 Skin problems Nature: dryness Location: B/L , Heel/Rearfoot Duration: several months
--- OUTSIDE RECORDS SUMMARY | 2023-11-22 13:15 | XMS_ITS ---
Author Organization [facility] Mandy swapnil [place] Address [address] [facility] [place] [address] Care Team Providers Care Cement Block Maker Name Role Phone Jayson Quispe MD Primary Care Provider Telly Stewart Unavailable [phone] ALLERGIES No Known Allergies REASON FOR VISIT Painful nail(s) aggrevated by shoes and causing difficulty standing/walking., PCP - 12/2022 MEDICATIONS Medication SIG (Take, Route, Frequency, Duration) Notes Start Date End Date Status Keflex 500 MG 1 capsule Orally raza ry 12 hrs for 10 day(s) Not-Taking Ecotrin Low Strength 81 MG 1 tablet Orally Once a day Not-Taking Amoxicillin Not-Taki ng Fish Oil Not-Taking Extra Depth Diabetic Shoes with 3 Pair Custom heat-molded multi-density innersoles for 1 year Dx: 11/01/2018 Active Ciclopirox Olamine 0.77 % 1 application to affected area Externally Twice a day to effected areas on feet for 30 days Active Rosuvastatin Calcium Active metFORMIN HCl 850 MG 1 tablet with a mera l Orally twice daily Active Lisinopril-hydroCHLOROthi azide 10-12.5 MG 1 tablet Orally Once a day Active Vitamin D3 Active SOCIAL HISTORY Tobacco [...] SIGNS Height 5 ft 8 in in 08/30/2023 Weight 208 lbs 08/30/2023 BMI 31.62 kg/m2 08/30/2023 Blood pressure systolic 120 mm Hg 08/30/19 24 Blood pressure diastolic 80 mm Hg 024 Encounters Encounter Location Date Provider Diagnosis [facility] [place] [address] [place] [address] 08/30/2023 Telly Harkins Type 2 diabetes mellitus with [...] Assessment Notes Treatment Notes Treatment Clinical Notes 08/30/2023 Type 2 diabetes mellitus with diabetic polyneuropathy (ICD-10 - E11.42) 08/30/2023 Ingrowing nail (ICD-10 - L60.0) 08/30/2023 Pain in right toe(s) (ICD-10 - M79.674) 08/30/2023 Tinea unguium (ICD-1 0 - B35.1) 08/30/2023 Pain in left toe(s) (ICD-10 - M79.675) 08/30/2023 Pain in left foot (ICD-10 - M79.672) 08/30/2023 Hallux valgus (acquired), right foot (ICD-10 - M20.11) 08/30/2023 Other hammer toe(s) (acquired), left foot (ICD-10 - M20.42) 08/30/2023 Other hammer toe(s) (acquired), right foot (ICD-10 - M20.41) 08/30/2023 Xerosis cutis (ICD-1 0 - L85.3) 08/30/2023 Tinea pedis (ICD-10 - B35.3) PLAN OF TREATMENT Medication Medication Name Sig Start Date Stop Date Notes Ciclopirox Olamine 0.77 % 1 application to affected area Externally Twice a day to effected areas on feet for 30 days Next Appt Details Follow Up: 3 Months, Reason: Provider Name:Telly Harkins, 11/29/2023 11:00:00 AM, [address] [place] [address], [phone], Procedure Notes * Category Sub-Category Detail Notes [...] as necessary. Patient chooses, no pharmaceutical tx (79789) Keratoma Treatment Parring or Cutting o f Benign Hyperkeratotic Lesion(s) 79705 (2-4 Lesions) - The Benign hyperkeratotic lesions, [...]
--- OUTSIDE RECORDS SUMMARY | 2023-11-22 13:15 | XMS_ITS ---
Author Organization [facility] swapnil [place] Address [address] [facility] [place] [address] Care Team Providers Care Principal System Software Engineer Name Role Phone Jayson Quispe MD Primary Care Provider Telly Stewart Unavailable [phone] ALLERGIES No Known Allergies REASON FOR VISIT Painful nail(s) aggrevated by shoes and causing difficulty standing/walking., PCP - 12/2022 MEDICATIONS Medication SIG (Take, Route, Frequency, Duration) Notes Start Date End Date Status Ciclopirox Olamine 0.77 % 1 application to affected area Externally Twice a day to effected areas on feet for 30 days Active Extra Depth Diabetic Shoes with 3 Pair Custom heat-molded multi-density innersoles for 1 year Dx: 11/01/2018 Active Fish Oil Not-Taking Amoxicillin Not-Taki ng Ecotrin Low Strength 81 MG 1 tablet Orally Once a day Not-Taking Vitamin D3 Active metFORMIN HCl 850 MG 1 tablet with a mera l Orally twice daily Active Rosuvastatin Calcium Active Keflex 500 MG 1 capsule Orally raza ry 12 hrs for 10 day(s) Not-Taking Lisinopril-hydroCHLOROthi azide 10-12.5 MG 1 tablet Orally Once a day Active SOCIAL HISTORY Tobacco Use: Social History [...] user? No VITAL SIGNS Height 5 ft 10 in in 01/16/2023 Weight 210 lbs 01/16/2023 BMI 30.13 kg/m2 01/16/2023 Encounters Encounter Location Date Provider Diagnosis [facility] [place] [address] [place] [address] 01/16/2023 Telly Harkins Type 2 diabetes mellitus with [...] Assessment Notes Treatment Notes Treatment Clinical Notes 01/16/2023 Type 2 diabetes mellitus with diabetic polyneuropathy (ICD-10 - E11.42) 01/16/2023 Ingrowing nail (ICD-10 - L60.0) 01/16/2023 Pain in right toe(s) (ICD-10 - M79.674) 01/16/2023 Tinea unguium (ICD-1 0 - B35.1) 01/16/2023 Pain in left toe(s) (ICD-10 - M79.675) 01/16/2023 Pain in left foot (ICD-10 - M79.672) 01/16/2023 Hallux valgus (acquired), right foot (ICD-10 - M20.11) 01/16/2023 Other hammer toe(s) (acquired), left foot (ICD-10 - M20.42) 01/16/2023 Other hammer toe(s) (acquired), right foot (ICD-10 - M20.41) 01/16/2023 Xerosis cutis (ICD-1 0 - L85.3) 01/16/2023 Tinea pedis (ICD-10 - B35.3) PLAN OF TREATMENT Medication Medication Name Sig Start Date Stop Date Notes Ciclopirox Olamine 0.77 % 1 application to affected area Externally Twice a day to effected areas on feet for 30 days Next Appt Details Follow Up: 3 Months,4 Months , Reason: Provider Name:Telly Kiersten Harkins, 11/29/2023 11:00:00 AM, [address] [place] [address], [phone], Procedure Notes * Category Sub-Category Detail Notes [...] as necessary. Patient chooses, no pharmaceutical tx (62203) Keratoma Treatment Parring or Cutting o f Benign Hyperkeratotic Lesion(s) 44172 (2-4 Lesions) - The Benign hyperkeratotic lesions, [...]
--- OUTSIDE RECORDS SUMMARY | 2023-11-22 13:15 | XMS_ITS | Patient Health Record ---
Author Organization [facility] [place] swap[place] Address [address] [facility] [place] [address] Care Team Providers Care Php Programmer Name Role Phone Jayson Quispe MD Primary Care Provider Telly Stewart Unavailable [phone] ALLERGIES No Known Allergies REASON FOR REFERRAL No Information MEDICATIONS Medication SIG (Take, Route, Frequency, Duration) [...] innersoles for 1 year Dx: 11/01/2018 Active Vitamin D3 Active IMMUNIZATIONS Vaccine Route Administration Date Status Comme nts COVID-19 Moderna Vaccine Unknown 01/04/2021 Administered 1st 04/10/20 2nd 05/08/20 Influenza Unknown 11/25/2017 Administered Influenza Unknown 12/13/2019 Administered Influenza Unknown 11/16/2021 Administered Influenza Unknown 01/11/2023 Administered SOCIAL HISTORY Tobacco Use: Social History Observation [...] Are you an other tobacco user? No PROBLEMS Problem Type ICD Code Onset Dates Problem Status W/U Status Risk SNOMED Code Notes Problem Hallux valgus (acquired), right foot (M20.11) Active confirmed Acquired hallu x valgus (13217746) Problem Other hammer toe(s) (acquired), right foot (M20.41) Active confirmed Acquired hamme r toe of right foot (9764078186330107 ) Problem Other hammer toe(s) (acquired), left foot (M20.42) Active confirmed Acquired hamme r toe of left foot (3235044025931215 ) Problem Type 2 diabetes mellitus with diabetic polyneuropathy (E11.42) Active confirmed Polyneuropathy due to type 2 diabetes mellitus (165293362) VITAL SIGNS Blood pressure diastolic 80 mm Hg 08/30/2023 Height 5 ft 8 in in 08/30/2023 Blood pressure systolic 120 mm Hg 08/30/2023 Weight 208 lbs 08/30/2023 BMI 31.62 kg/m2 08/30/2023 Encounters Encounter [facility] [address] [address] 01/16/2023 Telly Harkins Type 2 diabetes mellitus [...] Xerosis cutis L85.3 and Tinea pedis B35.[address] [facility] [address] 05/10/2023 Telly Harkins Type 2 diabetes mellitus [...] Xerosis cutis L85.3 and Tinea pedis B35.3 [facility] [address] [address] 08/30/2023 Telly Harkins Type 2 diabetes mellitus [...] with diabetic polyneuropathy (ICD-10 - E11.42) 05/10/2023 Type 2 diabetes mellitus with diabetic polyneuropathy (ICD-10 - E11.42) 08/30/2023 Ingrowing nail (ICD-10 - L60.0) 08/30/2023 Type 2 diabetes mellitus with diabetic polyneuropathy (ICD-10 - E11.42) 05/10/2023 Ingrowing nail (ICD-10 - L60.0) 08/30/2023 Pain in right toe(s) (ICD-10 - M79.674) 01/16/2023 Ingrowing nail (ICD-10 - L60.0) 01/16/2023 Pain in right toe(s) (ICD-10 - M79.674) 05/10/2023 Pain in right toe(s) (ICD-10 - M79.674) 08/30/2023 Tinea unguium (ICD-1 0 - B35.1) 08/30/2023 Pain in left toe(s) (ICD-10 - M79.675) 05/10/2023 Tinea unguium (ICD-1 0 - B35.1) 01/16/2023 Tinea unguium (ICD-1 0 - B35.1) 05/10/2023 Pain in left toe(s) (ICD-10 - M79.675) 01/16/2023 Pain in left toe(s) (ICD-10 - M79.675) 08/30/2023 Pain in left foot (ICD-10 - M79.672) 08/30/2023 Hallux valgus (acquired), right foot (ICD-10 - M20.11) 01/16/2023 Pain in left foot (ICD-10 - M79.672) 05/10/2023 Pain in left foot (ICD-10 - M79.672) 01/16/2023 Hallux valgus (acquired), right foot (ICD-10 - M20.11) 08/30/2023 Other hammer toe(s) (acquired), left foot (ICD-10 - M20.42) 05/10/2023 Hallux valgus (acquired), right foot (ICD-10 - M20.11) 05/10/2023 Other hammer toe(s) (acquired), left foot (ICD-10 - M20.42) 08/30/2023 Other hammer toe(s) (acquired), right foot (ICD-10 - M20.41) 01/16/2023 Other hammer toe(s) (acquired), left foot (ICD-10 - M20.42) 01/16/2023 Other hammer toe(s) (acquired), right foot (ICD-10 - M20.41) 05/10/2023 Other hammer toe(s) (acquired), right foot (ICD-10 - M20.41) 08/30/2023 Xerosis cutis (ICD-1 0 - L85.3) 05/10/2023 Xerosis cutis (ICD-1 0 - L85.3) 08/30/2023 Tinea pedis (ICD-10 - B35.3) 01/16/2023 Xerosis cutis (ICD-1 0 - L85.3) 01/16/2023 Tinea pedis (ICD-10 - B35.3) 05/10/2023 Tinea pedis (ICD-10 - B35.3) PLAN OF TREATMENT Pending Test Test Name Order Date 21567-EMZHDXX NAIL, 6 OR MORE 02/26/2018 73393- Debride <25 sq cm 12/11/2017 84040-MTDF SKIN LESIONS, 2 TO 4 02/27/20 18 62703-TAEO SKIN LESIONS, 2 TO 4 05/10/19 19 34442-DWDH SKIN LESIONS, 2 TO 4 08/03/19 19 07343-NRNB SKIN LESIONS, 2 TO 4 11/02/19 19 59204-GGPP SKIN LESIONS, 2 TO 4 02/05/20 19 70274-BBHI SKIN LESIONS, 2 TO 4 05/09/19 20 50562-KYUS SKIN LESIONS, 2 TO 4 08/07/19 20 92621-KBCQ SKIN LESIONS, 2 TO 4 11/13/19 20 31799-USHF SKIN LESIONS, 2 TO 4 02/19/20 20 58740-VOXJ SKIN LESIONS, 2 TO 4 05/26/19 21 98731-WJJO SKIN LESIONS, 2 TO 4 08/25/19 21 70062-FSQC SKIN LESIONS, 2 TO 4 11/24/19 21 58362-UXPU SKIN LESIONS, 2 TO 4 02/23/20 21 37707-BQWR SKIN LESIONS, 2 TO 4 06/08/19 22 40328- Nail Unit Biopsy 11/27/2017 Next Appt Details Provider Name:Telly Harkins, 11/29/2023 11:00:00 AM, [address] [place], [address], Insurance Providers Payer Name Payer Address Payer Phone Subscriber Number Group Number Insured Name Patient Relationship to Insured Coverage Start Date Coverage End Date Medicare National Govt [employer] [address] [place] [address] [id number] Santopesstewart s Ritesh Self - patient is the insured 1 [employer] [address] [place] [address] [id number] SantomihaelaRitesh kerr Self - patient is the insured MEDICAL (GENERAL) HISTORY Medical History History ICD Code High blood pressure Back,Hip,and Knee pain Cataracts Diabetic type ll Osteoporosis Joint implants/screws Paronychia Sleep apnea Surgical History Surgery Date(Month/Year) hernia 03/1973 cataract surgery left hip replacement 2016 right hip replacement 02/12/2019 endoscopy 02/2021 colonoscopy 02/2021,08/30/21 eye surgery 04/28/22 Hospitalization History Reason Date(Month/Year)
--- NOTE | 2023-11-22 13:16 | AM.OFFWIN_ITS ---
Intake Vital Signs 11/22/23 13:17 Height 5 ft 8 in Weight 205 lb BMI 31.2 BP 132/80 Blood Pressure Location Lt brachial Position Sitting Pulse 86 Pulse Source Pulse Oximeter Temp 98.0 F Temp Source Oral Pulse Oximetry (%) 96 Oxygen Delivery Method Room Air Intake Visit Reasons: EP COVID + Intake Note: Pt c/o Covid infection, Tested positive Monday. Patient Tobacco Use Status: Never used Tobacco Allergies No Known Allergies Allergy (Verified 11/22/23 13:17) Do you need a note to return to daycare/school/sports/work: No HPI HPI Comments History of Present Illness Details Patient is a 78-year-old male who states he tested positive for COVID 9 days ago. He states his symptoms were a fever, a cough, stuffy nose and a sore throat. He says that the fevers are gone, his nose is fine but he still has a little bit of a cough and a sore throat. He says he has a doctor's appointment on Monday that he does not want to miss but his doctor will not let him come to the office unless he has a negative COVID test. So he is here today asking for a COVID test. He states he was taking some cough drops and some nasal spray that the clinic where he was diagnosed prescribed him. He states he is still taking the cough drops but does not use the nasal spray anymore. He states his is also sick at home, she also tested positive for COVID. [facility] Social History Patient Tobacco Use Status: Never used Tobacco Review of Systems Const All systems reviewed & are unremarkable except as noted in HPI and below Physical Exam Vital Signs: Last Vital Signs Temp 98.0 F 11/22/23 13:17 Pulse 86 11/22/23 13:17 BP 132/80 11/22/23 13:17 Pulse Ox 96 11/22/23 13:17 Oxygen Delivery Method Room Air 11/22/23 13:17 BMI result Body Mass Index 31.2 Const General: cooperative, healthy appearing, comfortable and no acute distress Orientation/consciousness: patient oriented x3 Limitations: no limitations HEENT Head: Yes normal to inspection Ears: hearing grossly normal bilaterally and external ears normal General nose exam: Normal external nose present, Normal nares present and No nasal discharge present Face and sinus: Yes normal facial exam and Yes sinuses nontender Mouth: Normal oral and palatal mucosa present and moist mucous membranes Throat: Yes tonsils normal, Yes uvula midline and Yes posterior oropharynx abnormal (Erythema) Eyes General: appearance normal, both eyes and all related structures Neck Neck: Yes normal visual inspection Resp Effort & Inspection: normal respiratory effort, able to speak in complete sentences, no respiratory distress, not tachypneic, no tripod positioning and no use of accessory muscles Auscultation: clear to auscultation bilaterally Cardio Rate: regular rate Rhythm: regular rhythm Heart sounds: normal S1 and S2 Skin General skin exam: no rashes or lesions noted Neuro General: patient oriented x3 Extrem General: Yes normal to inspection and Yes no clubbing, cyanosis or edema Assessment & Plan Assessment & Plan (1) URI (upper respiratory infection): Code(s): J06.9 - Acute upper respiratory infection, unspecified Qualifiers: URI type: unspecified URI Qualified Code(s): J06.9 - Acute upper respiratory infection, unspecified Plan: Sent flu COVID and RSV. Patient is well out of the window for treatment and we would not prescribe Paxlovid at this point. We just need to call him with his test results. I did review the COVID guidelines with him. You have tested positive for a respiratory virus, please treat your symptoms with [id number] medications such as acetaminophen and ibuprofen if you are able to take ibuprofen, decongestants. Get plenty of rest and stay well hydrated. You can go back to your normal activities when, for at least 24 hours, both are true: Your symptoms are getting better overall, and You have not had a fever (and are not using fever-reducing medication). When you go back to your normal activities, take added precaution over the next 5 days, such as taking additional steps for night cleaner air, hygiene, masks, physical distancing, and/or testing when you will be around other people indoors. This is especially important to protect people with factors that increase their risk of severe illness from respiratory viruses. Keep in mind that you may still be able to spread the virus that made you sick, even if you are feeling better. You are likely to be less contagious at this time, depending on factors like how long you were sick or how sick you were. If you develop a fever or you start to feel worse after you have gone back to normal activities, stay home and away from others again until, for at least 24 hours, both are true: your symptoms are improving overall, and you have not had a fever (and are not using fever-reducing medication). Then take added precaution for the next 5 days. Coding Level of Care Code New Pt Level 3 (18595) Diagnoses Upper respiratory tract infection, unspecified type J06.9 URI type: unspecified URI
[2023-11-22 13:17] VITALS: BP 132/80; PULSE 86; TEMP 36.7; O2SAT 96; BMI 31.2
== END 2023-11-22 14:03 | disposition home or self-care (01) ==
PROVIDERS: Visit Provider Physician Assistant
DX: J06.9 Acute upper respiratory infection, unspecified (principal)
CPT/HCPCS: 99203

== ENCOUNTER 2023-11-22 13:46 | Outpatient (REF) | payer MEDICARE, SELFPAY ==
[2023-11-22 17:26] LABS: Influenza A PCR NEGATIVE (Negative); Influenza B PCR NEGATIVE (Negative); Resp Syncy Virus RNA Qual PCR NEGATIVE (Negative); SARS COV2 PCR INHOUSE POSITIVE (Negative)
== END 2023-11-22 13:47 | disposition home or self-care (01) ==
LOC: HO.LAB 13:46
PROVIDERS: Visit Provider Physician Assistant
DX: J06.9 Acute upper respiratory infection, unspecified (principal)
CPT/HCPCS: 0241U

== ENCOUNTER 2023-11-27 11:40 | Outpatient (REF) | payer MEDICARE, SELFPAY ==
[2023-11-27 16:58] LABS: Influenza A PCR NEGATIVE (Negative); Influenza B PCR NEGATIVE (Negative); Resp Syncy Virus RNA Qual PCR NEGATIVE (Negative); SARS COV2 PCR INHOUSE POSITIVE (Negative)
== END 2023-11-27 11:41 | disposition home or self-care (01) ==
LOC: HO.LAB 11:40
PROVIDERS: Physician Assistant
DX: J06.9 Acute upper respiratory infection, unspecified (principal)
CPT/HCPCS: 0241U; 99202

== ENCOUNTER 2023-11-27 11:40 | Outpatient (AMB) | payer MEDICARE, SELFPAY ==
--- OUTSIDE RECORDS SUMMARY | 2023-11-27 11:42 | XMS_ITS ---
Author Organization [facility] Mandy swapnil [place] Address [address] [facility] [place] [address] Care Team Providers Care Knitting Demonstrator Name Role Phone Jayson Quispe MD Primary Care Provider Telly Stewart Unavailable [phone] ALLERGIES No Known Allergies REASON FOR VISIT [...] 024 Encounters Encounter Location Date Provider Diagnosis [facility] [place] [address] [place] [address] 08/30/2023 Telly Harkins Type 2 diabetes mellitus [...] Reason: Provider Name:Telly Harkins, 11/29/2023 11:00:00 AM, [address] [place] [address], [phone], Procedure Notes * Category Sub-Category Detail Notes [...] as necessary. Patient chooses, no pharmaceutical tx (82865) Keratoma Treatment Parring or Cutting o f Benign Hyperkeratotic Lesion(s) 82847 (2-4 Lesions) - The Benign hyperkeratotic lesions, [...] Eye Exam:: no retin opathy Vascular DP PULSES(B): 1/4, B/L PT PULSES(B): 0/4, B/L TEMPERTURE GRADIENT(C): decreased, cool to cold, proximal to distal, B/L TROPHIC CONDITION-TEXTURE/ELASTICITY/TURGOR/HAIR GROWTH(B): sparce hair growth Nails NAILS are: Elongated, overg [...]
--- OUTSIDE RECORDS SUMMARY | 2023-11-27 11:42 | XMS_ITS ---
Author Organization [facility] [place] Address [address] [facility] [place] [address] Care Team Providers Care Windows Systems Engineer Name Role Phone Jayson Quispe MD Primary Care Provider Telly Stewart Unavailable [phone] ALLERGIES No Known Allergies REASON FOR VISIT [...] 01/16/2023 Encounters Encounter Location Date Provider Diagnosis [facility] [place] [address] [place] [address] 01/16/2023 Telly Harkins Type 2 diabetes mellitus [...] Provider Name:Telly Kiersten Harkins, 11/29/2023 11:00:00 AM, [address] [place] [address], [phone], Procedure Notes * Category Sub-Category Detail Notes [...] as necessary. Patient chooses, no pharmaceutical tx (98982) Keratoma Treatment Parring or Cutting o f Benign Hyperkeratotic Lesion(s) 75046 (2-4 Lesions) - The Benign hyperkeratotic lesions, [...]
--- OUTSIDE RECORDS SUMMARY | 2023-11-27 11:42 | XMS_ITS ---
Author Organization [facility] [place] Address [address] [facility] [place] [address] Care Team Providers Care Supervisor Felling Bucking Name Role Phone Jayson Quispe MD Primary Care Provider Telly Stewart Unavailable [phone] ALLERGIES No Known Allergies REASON FOR VISIT [...] 05/10/2023 Encounters Encounter Location Date Provider Diagnosis [facility] [place] [address] [place] [address] 05/10/2023 Telly Harkins Type 2 diabetes mellitus [...] Provider Name:Telly Kiersten Harkins, 11/29/2023 11:00:00 AM, [address] [place] [address], [phone], Procedure Notes * Category Sub-Category Detail Notes [...] as necessary. Patient chooses, no pharmaceutical tx (51800) Keratoma Treatment Parring or Cutting o f Benign Hyperkeratotic Lesion(s) 65637 (2-4 Lesions) - The Benign hyperkeratotic lesions, [...]
--- OUTSIDE RECORDS SUMMARY | 2023-11-27 11:43 | XMS_ITS | Patient Health Record ---
Author Organization [facility] [place] swap[place] Address [address] [facility] [place] [address] Care Team Providers Care Technical Communicator Name Role Phone Jayson Quispe MD Primary Care Provider Telly Stewart Unavailable [phone] ALLERGIES No Known Allergies REASON FOR REFERRAL [...] (M20.11) Active confirmed Acquired hallu x valgus (12935634) Problem Other hammer toe(s) (acquired), right foot (M20.41) Active confirmed Acquired hamme r toe of right foot (1731867206932915 ) Problem Other hammer toe(s) (acquired), left foot (M20.42) Active confirmed Acquired hamme r toe of left foot (5201510644488673 ) Problem Type 2 diabetes mellitus with diabetic polyneuropathy (E11.42) Active confirmed Polyneuropathy due to type 2 diabetes mellitus (842872374) VITAL SIGNS Blood pressure diastolic 80 mm Hg 08/30/2023 Height 5 ft 8 in in 08/30/2023 Blood pressure systolic 120 mm Hg 08/30/2023 Weight 208 lbs 08/30/2023 BMI 31.62 kg/m2 08/30/2023 Encounters Encounter [facility] [address] [address] 01/16/2023 Telly Harkins Type 2 diabetes mellitus [...] Xerosis cutis L85.3 and Tinea pedis B35.[address] [facility] [address] 05/10/2023 Telly Harkins Type 2 diabetes mellitus [...] Xerosis cutis L85.3 and Tinea pedis B35.3 [facility] [address] [address] 08/30/2023 Telly Harkins Type 2 diabetes mellitus [...] TREATMENT Pending Test Test Name Order Date 89229-GNRSAMN NAIL, 6 OR MORE 02/26/2018 56484- Debride <25 sq cm 12/11/2017 59892-ANHG SKIN LESIONS, 2 TO 4 02/27/20 18 47180-BVOZ SKIN LESIONS, 2 TO 4 05/10/19 19 87826-ACQV SKIN LESIONS, 2 TO 4 08/03/19 19 68205-MFNB SKIN LESIONS, 2 TO 4 11/02/19 19 50335-XVZQ SKIN LESIONS, 2 TO 4 02/05/20 19 93786-VVLS SKIN LESIONS, 2 TO 4 05/09/19 20 58412-SVAY SKIN LESIONS, 2 TO 4 08/07/19 20 82045-JNCM SKIN LESIONS, 2 TO 4 11/13/19 20 38879-UCAH SKIN LESIONS, 2 TO 4 02/19/20 20 35425-VAUD SKIN LESIONS, 2 TO 4 05/26/19 21 90394-NYHV SKIN LESIONS, 2 TO 4 08/25/19 21 64776-YTBY SKIN LESIONS, 2 TO 4 11/24/19 21 22918-SJQO SKIN LESIONS, 2 TO 4 02/23/20 21 99650-AYDI SKIN LESIONS, 2 TO 4 06/08/19 22 84174- Nail Unit Biopsy 11/27/2017 Next Appt Details Provider Name:Telly Harkins, 11/29/2023 11:00:00 AM, [address] [place], [address], Insurance Providers Payer Name Payer Address Payer Phone Subscriber Number Group Number Insured Name Patient Relationship to Insured Coverage Start Date Coverage End Date Medicare National Govt zoidu Inc [address] [place] [address] [id number] Santopesstewart s Ritesh Self - patient is the insured 1 [employer] Blue Shield [address] [place] [address] [id number] SantomihaelaRitesh kerr Self - patient is the [...]
[2023-11-27 12:08] VITALS: BP 114/72; PULSE 97; TEMP 36.9; O2SAT 97; BMI 31.2
--- NOTE | 2023-11-27 12:08 | MHC.OFFWIV ---
Intake Vital Signs 11/27/23 12:08 Height 5 ft 8 in Weight 205 lb BMI 31.2 BP 114/72 Blood Pressure Location Lt brachial Position Sitting Pulse 97 Pulse Source Pulse Oximeter Temp 98.4 F Temp Source Oral Pulse Oximetry (%) 97 Oxygen Delivery Method Room Air Intake Visit Reasons: EP-covid symptoms Intake Note: pt c/o Covid symptoms. Tested positive 11/21. Requesting retest Patient Tobacco Use Status: Never used Tobacco Allergies No Known Allergies Allergy (Verified 11/27/23 12:14) Do you need a note to return to daycare/school/sports/work: No HPI HPI Comments History of Present Illness Details Patient is a 78-year-old male who tested positive for COVID 2 weeks ago. Trying to get into see a specific DrAnn but that DrAnn will not see him until he has a negative COVID test so he is seeking a COVID test today. He states he has some residual head congestion but offers no other complaints. He denies any headaches, fevers, nausea vomiting diarrhea or shortness of breath. [facility] Social History Patient Tobacco Use Status: Never used Tobacco Review of Systems Const All systems reviewed & are unremarkable except as noted in HPI and below Physical Exam Vital Signs: Last Vital Signs Temp 98.4 F 11/27/23 12:08 Pulse 97 11/27/23 12:08 BP 114/72 11/27/23 12:08 Pulse Ox 97 11/27/23 12:08 Oxygen Delivery Method Room Air 11/27/23 12:08 BMI result Body Mass Index 31.2 Const General: cooperative, healthy appearing, comfortable and no acute distress Orientation/consciousness: patient oriented x3 Limitations: no limitations HEENT Head: Yes normal to inspection Ears: hearing grossly normal bilaterally, external ears normal and TM's normal bilaterally General nose exam: Normal external nose present, Normal nares present and No nasal discharge present Face and sinus: Yes normal facial exam and Yes sinuses nontender Mouth: Normal oral and palatal mucosa present and moist mucous membranes Throat: Yes tonsils normal, Yes uvula midline and Yes posterior oropharynx abnormal (Erythema) Eyes General: appearance normal, both eyes and all related structures Neck Neck: Yes normal visual inspection Resp Effort & Inspection: normal respiratory effort, able to speak in complete sentences, no respiratory distress, not tachypneic, no tripod positioning and no use of accessory muscles Skin General skin exam: no rashes or lesions noted Neuro General: patient oriented x3 Extrem General: Yes normal to inspection and Yes no clubbing, cyanosis or edema Assessment & Plan Assessment & Plan (1) URI (upper respiratory infection): Code(s): J06.9 - Acute upper respiratory infection, unspecified Qualifiers: URI type: unspecified viral URI Qualified Code(s): J06.9 - Acute upper respiratory infection, unspecified Plan: Recommended patient take a daily allergy pill and use Flonase, explained how to use the Flonase properly. Also explained that he could test positive for a long time but it is most important that he monitor his symptoms. He should be able to go out of the general public after he is fever free and symptom free for 24 hours but he should wear a mask for the 1st 5 days. Plan see above Coding Level of Care Code New Pt Level 3 (08620) Diagnoses Viral upper respiratory tract infection J06.9 URI type: unspecified viral URI
== END 2023-11-27 12:59 | disposition home or self-care (01) ==
PROVIDERS: Visit Provider Physician Assistant
DX: J06.9 Acute upper respiratory infection, unspecified (principal)

== ENCOUNTER 2023-12-05 11:39 | Outpatient (AMB) | payer MEDICARE, SELFPAY ==
--- OUTSIDE RECORDS SUMMARY | 2023-12-05 11:41 | XMS_ITS ---
Author Organization [facility] [place] Address [address] [facility] [place] [address] Care Team Providers Care Review Nurse Name Role Phone Jayson Quispe MD Primary Care Provider Telly Stewart Unavailable [phone] ALLERGIES No Known Allergies REASON FOR VISIT [...] 05/10/2023 Encounters Encounter Location Date Provider Diagnosis [facility] [place] [address] [place] [address] 05/10/2023 Telly Harkins Type 2 diabetes mellitus [...] Up: 3 Months,4 Months , Reason: Provider Name:Virginie Jonmacy zaldivar, 03/18/2024 11:15:00 AM, [address] [place], [address], Procedure Notes * Category Sub-Category Detail Notes [...] as necessary. Patient chooses, no pharmaceutical tx (67001) Keratoma Treatment Parring or Cutting o f Benign Hyperkeratotic Lesion(s) 60018 (2-4 Lesions) - The Benign hyperkeratotic lesions, [...]
--- OUTSIDE RECORDS SUMMARY | 2023-12-05 11:41 | XMS_ITS ---
Author Organization [facility] [place] Address [address] [facility] [place] [address] Care Team Providers Care Marketing Assistant Manager Name Role Phone Jayson Quispe MD Primary Care Provider Telly Stewart Unavailable [phone] ALLERGIES No Known Allergies REASON FOR VISIT Painful nail(s) aggrevated by shoes and causing difficulty standing/walking. MEDICATIONS Medication SIG (Take, Route, Frequency, Duration) Notes Start Date End Date Status Keflex 500 MG 1 capsule Orally raza ry 12 hrs for 10 day(s) Not-Taking Ecotrin Low Strength 81 MG 1 tablet Orally Once a day Not-Taking Amoxicillin Not-Taki ng Fish Oil Not-Taking Ciclopirox Olamine 0.77 % 1 application to affected area Externally Twice a day to effected areas on feet for 30 days Active Extra Depth Diabetic Shoes with 3 Pair Custom heat-molded multi-density innersoles for 1 year Dx: 11/01/2018 Active Vitamin D3 Active Rosuvastatin Calcium Active metFORMIN HCl 850 [...] SIGNS Height 5 ft 8 in in 11/29/2023 Weight 208 lbs 11/29/2023 BMI 31.62 kg/m2 11/29/2023 Blood pressure systolic 120 mm Hg 11/29/19 24 Blood pressure diastolic 80 mm Hg 024 Encounters Encounter Location Date Provider Diagnosis [facility] [place] [address] [place] [address] 11/29/2023 Telly Harkins Type 2 diabetes mellitus with [...] Assessment Notes Treatment Notes Treatment Clinical Notes 11/29/2023 Type 2 diabetes mellitus with diabetic polyneuropathy (ICD-10 - E11.42) 11/29/2023 Ingrowing nail (ICD-10 - L60.0) 11/29/2023 Pain in right toe(s) (ICD-10 - M79.674) 11/29/2023 Tinea unguium (ICD-1 0 - B35.1) 11/29/2023 Pain in left toe(s) (ICD-10 - M79.675) 11/29/2023 Pain in left foot (ICD-10 - M79.672) 11/29/2023 Hallux valgus (acquired), right foot (ICD-10 - M20.11) 11/29/2023 Other hammer toe(s) (acquired), left foot (ICD-10 - M20.42) 11/29/2023 Other hammer toe(s) (acquired), right foot (ICD-10 - M20.41) 11/29/2023 Xerosis cutis (ICD-1 0 - L85.3) 11/29/2023 Tinea pedis (ICD-10 - B35.3) PLAN OF TREATMENT Medication Medication Name Sig Start Date Stop Date Notes Ciclopirox Olamine 0.77 % 1 application to affected area Externally Twice a day to effected areas on feet for 30 days Next Appt Details Follow Up: 3 Months, Reason: Provider Name:Virginie zaldivar, 03/18/2024 11:15:00 AM, [address] [place] [address], [phone], Procedure Notes * Category Sub-Category Detail Notes [...] as necessary. Patient chooses, no pharmaceutical tx (02624) Keratoma Treatment Parring or Cutting o f Benign Hyperkeratotic Lesion(s) 69124 (2-4 Lesions) - The Benign hyperkeratotic lesions, [...] Visual exam of foot performed:: Yes Date: 11/29/2023 Sensory testing performed:: sensations d iminished Pedal [...] Nails Pt States Last PCP Visit: Date:: 024 Skin problems Nature: dryness Location: B/L , Heel/Rearfoot Duration: several months
--- OUTSIDE RECORDS SUMMARY | 2023-12-05 11:41 | XMS_ITS | Patient Health Record ---
Author Organization [facility] [place] swapnil [place] Address [address] [place] [address] Care Team Providers Care Javascript Application Developer Name Role Phone Jayson Quispe MD Primary Care Provider UnavailTelly Milligan Unavailable [phone] ALLERGIES No Known Allergies REASON FOR REFERRAL No Information MEDICATIONS Medication SIG (Take, Route, Frequency, Duration) Notes Start Date End Date Status Extra Depth Diabetic Shoes with 3 Pair Custom heat-molded multi-density innersoles for 1 year Dx: 11/01/2018 Active Vitamin D3 Active Rosuvastatin Calcium Active Keflex 500 MG 1 capsule Orally raza ry 12 hrs for 10 day(s) Not-Taking Ecotrin Low Strength 81 MG 1 tablet Orally Once a day Not-Taking Amoxicillin Not-Taki ng Fish Oil Not-Taking Ciclopirox Olamine 0.77 % 1 application to affected area Externally Twice a day to effected areas on feet for 30 days Active metFORMIN HCl 850 MG 1 tablet with a mera l Orally twice daily Active Lisinopril-hydroCHLOROthi azide 10-12.5 MG 1 tablet Orally Once a day Active IMMUNIZATIONS Vaccine Route Administration Date Status [...] (M20.11) Active confirmed Acquired hallu x valgus (05181613) Problem Other hammer toe(s) (acquired), right foot (M20.41) Active confirmed Acquired hamme r toe of right foot (6387322237644302 ) Problem Other hammer toe(s) (acquired), left foot (M20.42) Active confirmed Acquired hamme r toe of left foot (4982929768670871 ) Problem Type 2 diabetes mellitus with diabetic polyneuropathy (E11.42) Active confirmed Polyneuropathy due to type 2 diabetes mellitus (524707239) VITAL SIGNS Blood pressure diastolic 80 mm Hg 11/29/2023 Height 5 ft 8 in in 11/29/2023 Blood pressure systolic 120 mm Hg 11/29/2023 Weight 208 lbs 11/29/2023 BMI 31.62 kg/m2 11/29/2023 Encounters [facility]counter [facility] [address] [address] 01/16/2023 Telly Harkins Type 2 diabetes mellitus [...] Xerosis cutis L85.3 and Tinea pedis B35.[address] [facility] [address] 05/10/2023 Telly Harkins Type 2 diabetes mellitus [...] Xerosis cutis L85.3 and Tinea pedis B35.[address] [address] 08/30/2023 Telly Harkins Type 2 diabetes mellitus [...] Xerosis cutis L85.3 and Tinea pedis B35.[address] [address] 11/29/2023 Telly Harkins Type 2 diabetes mellitus [...] with diabetic polyneuropathy (ICD-10 - E11.42) 11/29/2023 Type 2 diabetes mellitus with diabetic polyneuropathy (ICD-10 - E11.42) 11/29/2023 Ingrowing nail (ICD-10 - L60.0) 05/10/2023 Ingrowing nail (ICD-10 - L60.0) 08/30/2023 Pain in right toe(s) (ICD-10 - M79.674) 01/16/2023 Ingrowing nail (ICD-10 - L60.0) 01/16/2023 Pain in right toe(s) (ICD-10 - M79.674) 05/10/2023 Pain in right toe(s) (ICD-10 - M79.674) 08/30/2023 Tinea unguium (ICD-1 0 - B35.1) 11/29/2023 Pain in right toe(s) (ICD-10 - M79.674) 11/29/2023 Tinea unguium (ICD-1 0 - B35.1) 08/30/2023 Pain in left toe(s) (ICD-10 - M79.675) 05/10/2023 Tinea unguium (ICD-1 0 - B35.1) 01/16/2023 Tinea unguium (ICD-1 0 - B35.1) 05/10/2023 Pain in left toe(s) (ICD-10 - M79.675) 01/16/2023 Pain in left toe(s) (ICD-10 - M79.675) 08/30/2023 Pain in left foot (ICD-10 - M79.672) 11/29/2023 Pain in left toe(s) (ICD-10 - [...] (acquired), right foot (ICD-10 - M20.11) 11/29/2023 Hallux valgus (acquired), right foot (ICD-10 - M20.11) 11/29/2023 Other hammer toe(s) (acquired), left foot (ICD-10 - M20.42) 05/10/2023 Other hammer toe(s) (acquired), left foot (ICD-10 - M20.42) 08/30/2023 Other hammer toe(s) (acquired), right foot (ICD-10 - M20.41) 01/16/2023 Other hammer toe(s) (acquired), left foot (ICD-10 - M20.42) 01/16/2023 Other hammer toe(s) (acquired), right foot (ICD-10 - M20.41) 05/10/2023 Other hammer toe(s) (acquired), right foot (ICD-10 - M20.41) 08/30/2023 Xerosis cutis (ICD-1 0 - L85.3) 11/29/2023 Other hammer toe(s) (acquired), right foot (ICD-10 - M20.41) 11/29/2023 Xerosis cutis (ICD-1 0 - L85.3) 05/10/2023 Xerosis cutis (ICD-1 0 - L85.3) 08/30/2023 Tinea pedis (ICD-10 - B35.3) 01/16/2023 Xerosis cutis (ICD-1 0 - L85.3) 01/16/2023 Tinea pedis (ICD-10 - B35.3) 05/10/2023 Tinea pedis (ICD-10 - B35.3) 11/29/2023 Tinea pedis (ICD-10 - B35.3) PLAN OF TREATMENT Pending Test Test Name Order Date 36155-XZXYYCY NAIL, 6 OR MORE 02/26/2018 37311- Debride <25 sq cm 12/11/2017 66739-DRUE SKIN LESIONS, 2 TO 4 02/27/20 18 42441-FJRZ SKIN LESIONS, 2 TO 4 05/10/19 19 65201-SMAL SKIN LESIONS, 2 TO 4 08/03/19 19 86242-UIVN SKIN LESIONS, 2 TO 4 11/02/19 19 29154-TOGB SKIN LESIONS, 2 TO 4 02/05/20 19 06332-UGJN SKIN LESIONS, 2 TO 4 05/09/19 20 76500-QAKR SKIN LESIONS, 2 TO 4 08/07/19 20 90434-CGAL SKIN LESIONS, 2 TO 4 11/13/19 20 27537-GPRR SKIN LESIONS, 2 TO 4 02/19/20 20 67444-BIXQ SKIN LESIONS, 2 TO 4 05/26/19 21 64922-JVXR SKIN LESIONS, 2 TO 4 08/25/19 21 70760-JVRR SKIN LESIONS, 2 TO 4 11/24/19 21 35084-GECP SKIN LESIONS, 2 TO 4 02/23/20 21 83534-WKJV SKIN LESIONS, 2 TO 4 06/08/19 22 15030- Nail Unit Biopsy 11/27/2017 Next Appt Details Provider Name:Virginie Villa zen, 03/18/2024 11:15:00 AM, [address] [place], [address], Insurance Providers Payer Name Payer Address Payer Phone Subscriber Number Group Number Insured Name Patient Relationship to Insured Coverage Start Date Coverage End Date Medicare National Govt Svcs Inc [address] [facility] [address] [id number] Lempessi s, Ritesh Self - patient is the insured 1 Medex Blue [facility] [address] [place] [address] [id number] Lempessi s, Ritesh Self - patient is the insured MEDICAL [...]
--- OUTSIDE RECORDS SUMMARY | 2023-12-05 11:41 | XMS_ITS ---
Author Organization [facility] [place] swapnil [place] Address [address] [facility] [place] [address] Care Team Providers Care Foley Artist Name Role Phone Jayson Quispe MD Primary Care Provider Telly Stewart Unavailable [phone] ALLERGIES No Known Allergies REASON FOR VISIT [...] 024 Encounters Encounter Location Date Provider Diagnosis [facility] [place] [address] [place] [address] 08/30/2023 Telly Harkins Type 2 diabetes mellitus [...] Reason: Provider Name:Virginie zaldivar, 03/18/2024 11:15:00 AM, [address] [place] [address], [phone], Procedure Notes * Category Sub-Category Detail Notes [...] as necessary. Patient chooses, no pharmaceutical tx (55517) Keratoma Treatment Parring or Cutting o f Benign Hyperkeratotic Lesion(s) 08501 (2-4 Lesions) - The Benign hyperkeratotic lesions, [...]
[2023-12-05 11:42] VITALS: BP 108/62; PULSE 93; TEMP 36.8; O2SAT 96; BMI 31.2
--- NOTE | 2023-12-05 11:42 | MHC.OFFWIV ---
Intake Vital Signs 12/05/23 11:42 Height 5 ft 8 in Weight 205 lb BMI 31.2 BP 108/62 Blood Pressure Location Rt brachial Position Sitting Pulse 93 Pulse Source Pulse Oximeter Temp 98.2 F Temp Source Oral Pulse Oximetry (%) 96 Oxygen Delivery Method Room Air Intake Visit Reasons: EP cough, another COVID test Intake Note: pt c/o ongoing cough. Requesting Covid test Patient Tobacco Use Status: Never used Tobacco Allergies No Known Allergies Allergy (Verified 12/05/23 11:42) Do you need a note to return to daycare/school/sports/work: No HPI HPI Comments History of Present Illness Details Patient is a 78-year-old male who was diagnosed with COVID a few weeks ago and states he is feeling better however his primary care doctor will not see him until he has a negative COVID test. He stopped taking any einl-axi-ivmqioh medications because all he states he has a lingering dry cough which does not bother him. He denies any fevers, head congestion, headaches, sinus pain or ear pain. [facility] Social History Patient Tobacco Use Status: Never used Tobacco Review of Systems Const All systems reviewed & are unremarkable except as noted in HPI and below Physical Exam Vital Signs: Last Vital Signs Temp 98.2 F 12/05/23 11:42 Pulse 93 12/05/23 11:42 BP 108/62 12/05/23 11:42 Pulse Ox 96 12/05/23 11:42 Oxygen Delivery Method Room Air 12/05/23 11:42 BMI result Body Mass Index 31.2 Const General: cooperative, healthy appearing, comfortable and no acute distress Orientation/consciousness: patient oriented x3 Limitations: no limitations HEENT Head: Yes normal to inspection Ears: hearing grossly normal bilaterally, external ears normal and TM's normal bilaterally General nose exam: Normal external nose present, Normal nares present and No nasal discharge present Face and sinus: Yes normal facial exam and Yes sinuses nontender Mouth: Normal oral and palatal mucosa present and moist mucous membranes Throat: Yes tonsils normal, Yes uvula midline and Yes posterior oropharynx abnormal (Erythema) Eyes General: appearance normal, both eyes and all related structures Neck Neck: Yes normal visual inspection Resp Effort & Inspection: normal respiratory effort, able to speak in complete sentences, no respiratory distress, not tachypneic, no tripod positioning and no use of accessory muscles Skin General skin exam: no rashes or lesions noted Neuro General: patient oriented x3 Extrem General: Yes normal to inspection and Yes no clubbing, cyanosis or edema Assessment & Plan Assessment & Plan (1) URI (upper respiratory infection): Code(s): J06.9 - Acute upper respiratory infection, unspecified Qualifiers: URI type: unspecified viral URI Qualified Code(s): J06.9 - Acute upper respiratory infection, unspecified Plan: Patient appears to be recovering nicely from his COVID, he just has a lingering dry cough which I told him to use hot tea with honey or whatever musz-bzr-avhhuzj medications work well for him. We did send a flu COVID and RSV test today. Plan see above Coding Level of Care Code New Pt Level 3 (29339) Diagnoses Viral upper respiratory tract infection J06.9 URI type: unspecified viral URI
== END 2023-12-05 13:04 | disposition home or self-care (01) ==
PROVIDERS: Visit Provider Physician Assistant
DX: J06.9 Acute upper respiratory infection, unspecified (principal)

== ENCOUNTER 2023-12-05 11:39 | Outpatient (REF) | payer MEDICARE, SELFPAY ==
[2023-12-05 14:11] LABS: Influenza A PCR NEGATIVE (Negative); Influenza B PCR NEGATIVE (Negative); Resp Syncy Virus RNA Qual PCR NEGATIVE (Negative); SARS COV2 PCR INHOUSE POSITIVE (Negative)
== END 2023-12-05 11:40 | disposition home or self-care (01) ==
LOC: HO.LAB 11:39
PROVIDERS: Visit Provider Physician Assistant
DX: J06.9 Acute upper respiratory infection, unspecified (principal)
CPT/HCPCS: 0241U; 99212